=== PATIENT | male | born 1955 | race Caucasian/White ===

== ENCOUNTER 2025-02-01 07:05 | Day surgery (SDC) | payer OTHER ==
[2025-01-31 15:24] VITALS: BMI 37.1
[2025-02-01] MEDS ORDERED: LIDOCAINE HCL/PF 1% SDV 5ML VIAL ONE (07:12)
[2025-02-01] MEDS ORDERED: DEXAMETHASONE SOD PHOSPHATE 10 MG/1 ML VIAL ONE (07:12)
[2025-02-01 10:03] VITALS: TEMP 97.6
[2025-02-01 11:23] VITALS: BP 129/75; PULSE 61; RESP 16
[2025-02-01] MEDS ORDERED: ACETAMINOPHEN 500 MG TABLET (FP) ONE (11:45)
[2025-02-01] MEDS ORDERED: ACETAMINOPHEN 500 MG TABLET (FP) PO PRN (12:44)
== END 2025-02-01 12:18 | disposition home or self-care (01) ==
LOC: JASU-SURG 07:05
PROVIDERS: ATTEND Pain Medicine Pain Medicine
PROC: 3E0R3BZ Introduction of Anesthetic Agent into Spinal Canal, Percutaneous Approach (ICD-10-PCS; 2025-02-01)
PROC: 3E0R33Z Introduction of Anti-inflammatory into Spinal Canal, Percutaneous Approach (ICD-10-PCS; principal; 2025-02-01 11:15)
DX: M54.16 Radiculopathy, lumbar region (principal); M48.061 Spinal stenosis, lumbar region without neurogenic claudication
CPT/HCPCS: 76000-TC-FY; J1100